=== PATIENT | male | born 1980 | race African-American/Black ===

== ENCOUNTER 2023-03-20 12:22 | Emergency (ER) | payer MEDICAID, OTHER ==
[~2023-03-20] VITALS: Ht 182.9 cm; Wt 90.7 kg
[2023-03-20] MEDS ORDERED: ACETAMINOPHEN 325MG TABLET PO NR (15:29)
[2023-03-20] MEDS ORDERED: ALBU18HF2 IH (15:34)
[2023-03-20] MEDS ORDERED: DEXTL PO (15:34)
[2023-03-20] MEDS ORDERED: NAPR-681 PO (15:34)
[2023-03-20] MEDS ORDERED: AZIT250T12 MT (15:34)
[2023-03-20 15:52] VITALS: BP 125/68
== END 2023-03-20 15:59 | disposition home or self-care (01) ==
LOC: ER 12:22
DX: M94.0 Chondrocostal junction syndrome [Tietze] (principal)
CPT/HCPCS: 71045; 99283